=== PATIENT | male | born 1985 | race Caucasian/White ===

== ENCOUNTER 2023-05-15 07:00 | Outpatient (CLI) | payer OTHER ==
--- NOTE | 2023-05-15 19:57 | XRAY Report ---
PROCEDURE: Wrist 3+V LT INDICATIONS: PAIN IN LEFT WRIST TECHNIQUE: 3 views of the wrist were acquired. COMPARISON: None FINDINGS: Bones: No fractures or dislocations. No suspicious bony lesions. Soft tissues: No suspicious soft tissue calcifications or masses. IMPRESSION: Unremarkable wrist radiographs Reviewed by: Wellington Jhaveri MD on 05/15/2023 6:55 PM AKDT Approved by: Wellington Jhaveri MD on 05/15/2023 6:55 PM AKDT Station ID: [id number]
--- NOTE | 2023-05-15 20:03 | XRAY Report ---
PROCEDURE: Hand 3+V LT INDICATIONS: PAIN IN LEFT HAND TECHNIQUE: 3 view(s) of the hand(s) acquired. COMPARISON: None FINDINGS: Bones: No fractures or dislocations. No suspicious bony lesions. Soft tissues: No suspicious soft tissue calcifications. IMPRESSION: Unremarkable hand radiographs Reviewed by: Wellington Jhaveri MD on 05/15/2023 7:01 PM [email or web address] Approved by: Wellington Jhaveri MD on 05/15/2023 7:01 PM AKDT Station ID: [id number]
== END 2023-05-15 23:59 | disposition home or self-care (01) ==
LOC: DI.S 07:00
PROVIDERS: ATTEND Registered Nurse
DX: M25.532 Pain in left wrist (principal); M25.542 Pain in joints of left hand

== ENCOUNTER 2023-05-22 08:18 | Outpatient (CLI) | payer OTHER ==
--- NOTE | 2023-05-22 09:03 | XRAY Report ---
PROCEDURE: Wrist 3+V LT INDICATIONS: LEFT WRIST FRACTURE TECHNIQUE: 3 views of the wrist were acquired. COMPARISON: Left wrist radiograph on May 15, 2023 FINDINGS: Bones: Nondisplaced fracture in the proximal pole of the scaphoid. No suspicious bony lesions. Soft tissues: No suspicious soft tissue calcifications or masses. IMPRESSION: Nondisplaced fracture in the proximal pole of the scaphoid. Reviewed by: Micheal Dumont MD on 05/22/2023 9:01 AM PDT Approved by: Micheal Dumont MD on 05/22/2023 9:01 AM PDT Station ID: [id number]
== END 2023-05-22 08:19 | disposition home or self-care (01) ==
LOC: DI 08:18
PROVIDERS: ATTEND Orthopaedic Surgery
DX: S62.035A Nondisplaced fracture of proximal third of navicular [scaphoid] bone of left wrist, initial encounter for closed fracture (principal)

== ENCOUNTER 2023-07-03 10:01 | Outpatient (CLI) | payer OTHER ==
--- NOTE | 2023-07-03 23:15 | XRAY Report ---
PROCEDURE: Wrist 3+V LT INDICATIONS: LEFT WRIST FRACTURE TECHNIQUE: 3 views of the wrist were acquired. COMPARISON: None FINDINGS: Bones: There has been remodeling and bridging transverse scaphoid fracture indicating healing. Sangeeta l bone mineralization present. Soft tissues: No suspicious soft tissue calcifications or masses. IMPRESSION: Healing scaphoid fracture, nondisplaced Reviewed by: Wellington Jhaveri MD on 07/03/2023 10:13 PM [email or web address] Approved by: Wellington Jhaveri MD on 07/03/2023 10:13 PM AKDT Station ID: [id number]
== END 2023-07-03 10:02 | disposition home or self-care (01) ==
LOC: DI 10:01
PROVIDERS: ATTEND Orthopaedic Surgery
DX: S62.025D Nondisplaced fracture of middle third of navicular [scaphoid] bone of left wrist, subsequent encounter for fracture with routine healing (principal)